=== PATIENT | female | born 1965 | race Caucasian/White ===

== ENCOUNTER 2018-05-12 15:13 | Observation (INO) | payer OTHER ==
[~2018-05-12] VITALS: Ht 160 cm; Wt 80.3 kg
[2018-05-12 16:24] LABS: BASOPHIL (%) 0.5 % (0-1); EOSINOPHIL (%) 1.3 % (0-5); EOSINOPHIL COUNT 0.1 K/uL (0-0.3); HEMATOCRIT 36.6 % (36.0-46.0); HEMOGLOBIN 12.4 G/DL (11.9-15.5); IMMATURE GRANULOCYTE (%) 0.2 % (0.0-0.7); LYMPHOCYTE (%) 21.4 % (15-42); LYMPHOCYTE COUNT 1.8 K/uL (1.0-2.8); MCH 30.3 PG (29.0-34.0); MCHC 33.9 G/DL (30.0-36.0); MCV 89.5 FL (83-99); MONOCYTE (%) 6.8 % (3-12); MONOCYTE COUNT 0.6 K/uL (0-0.8); NEUTROPHIL (%) 69.8 % (45-76); NEUTROPHIL COUNT 5.7 K/uL (1.8-6.4); PLATELET COUNT 244 K/uL (156-360); RBC DIS.WIDTH-CV 12.4 % (11.8-14.6); RBC DIS.WIDTH-SD 40.6 % (39-53); RED BLOOD COUNT 4.09 M/uL (3.80-5.20); WHITE BLOOD COUNT 8.2 K/uL (4.1-10.2)
[2018-05-12 16:33] LABS: INTER. NORMALIZED RATIO 1.1
[2018-05-12 16:35] LABS: PTT 31.1 SEC (25-37)
[2018-05-12 16:37] LABS: AMYLASE 59 IU/L (1-118); CHLORIDE 101 mEq/L (99-109); POTASSIUM 3.6 mEq/L (3.7-5.4); SODIUM 138 mEq/L (136-147)
[2018-05-12 16:39] LABS: GLUCOSE 133 mg/dL (70-99)
[2018-05-12 16:42] LABS: SERUM ETHYL ALCOHOL < 10 mg/dL
[2018-05-12 16:43] LABS: CREATININE 0.9 mg/dL (0.6-1.3); GFR ESTIMATE (CALCULATED) > 59 mL/min/; UREA NITROGEN (BUN) 15 mg/dL (9-23)
[2018-05-12 16:46] LABS: LIPASE 79 U/L (1.0-51.0)
[2018-05-12 16:47] LABS: TROP-I INTERPRETATION NEGATIVE; TROPONIN-I < 0.01 ng/mL (0.0-0.30)
[2018-05-12 16:51] LABS: QUANTITATIVE HCG < 4.0 MIU/ML
[2018-05-12] MEDS ORDERED: MICROZIDE12.5 M1 PO (17:12)
[2018-05-12] MEDS ORDERED: CLONAZEPAM1 MG PO (17:13)
[2018-05-12] MEDS ORDERED: PROCHLORPERAZIN10 MG PO (17:14)
[2018-05-12] MEDS ORDERED: LISINOPRIL10 MG PO (17:15)
[2018-05-12] MEDS ORDERED: SERTRALINE HCL50 MG PO (17:16)
[2018-05-12] MEDS ORDERED: RABEPRAZOLE SOD20 MG PO (17:18)
[2018-05-12] MEDS ORDERED: ALMOTRIPTAN M12.5 MG PO (17:23)
[2018-05-12 19:59] LABS: HDL CHOLESTEROL 55 MG/DL (Desirable>=50); LDL CHOLESTEROL 87 mg/dL (Desirable<100); NON-HDL CHOLESTEROL 109 mg/dL (Desirable<160); TOTAL CHOLESTEROL 164 mg/dL (Desirable<200); TRIGLYCERIDES 108 MG/DL (Normal: <150)
[2018-05-12 20:32] LABS: APPEARANCE CLEAR ((CLEAR)); BILIRUBIN NEGATIVE; BLOOD NEGATIVE; COLOR STRAW ((YELLOW)); GLUCOSE (STRIP) NEGATIVE; KETONES NEGATIVE; LEUKOCYTES NEGATIVE; NITRITE NEGATIVE; PROTEIN (STRIP) NEGATIVE; SPECIFIC GRAVITY 1.056 (1.000-1.030); UCUL ADDED? NO; UROBILINOGEN 0.2 MG/DL (0.2-1.0)
[2018-05-12 20:51] VITALS: BP 138/79
[2018-05-12 20:55] LABS: AMPHETAMINE NEGATIVE (500 ng/mL); BARBITURATES NEGATIVE (200 ng/mL); BENZODIAZEPINES NEGATIVE (150 ng/mL); BUPRENORPHINE NEGATIVE (10 ng/mL); COCAINE NEGATIVE (150 ng/mL); METHADONE NEGATIVE (200 ng/mL); METHAMPHETAMINE NEGATIVE (500 ng/mL); OPIATES (MORPHINE) NEGATIVE (100 ng/mL); OXYCODONE NEGATIVE (100 ng/mL); PHENCYCLIDINE NEGATIVE (25 ng/mL); PROPOXYPHENE NEGATIVE (300 ng/mL); THC CANNABINOIDS NEGATIVE (50 ng/mL); TRICYCLIC ANTIDEPRESSANTS NEGATIVE (300 ng/mL)
[2018-05-13 03:51] VITALS: BP 108/51
[2018-05-13 07:30] VITALS: BP 113/63
[2018-05-13 12:25] VITALS: BP 118/59
[2018-05-13 12:33] LABS: HEMOGLOBIN A1c (GLYCOHEMOGLOB) 5.6 % (Below 5.7)
[2018-05-13 12:50] LABS: CHLORIDE 103 MEQ/L (99-109); CREATININE 0.8 MG/DL (0.6-1.3); GFR ESTIMATE (CALCULATED) > 59 mL/min/; POTASSIUM 3.8 MEQ/L (3.7-5.4); SODIUM 142 MEQ/L (136-147); UREA NITROGEN (BUN) 12 mg/dL (9-23)
[2018-05-13 12:51] LABS: GLUCOSE 99 mg/dL (70-99)
[2018-05-13] MEDS ORDERED: ASPIR-LOW81 MG PO (13:53)
== END 2018-05-13 16:05 | disposition home or self-care (01) ==
LOC: EME 15:13 → 4SOUTH 18:38 → EDOF 18:38 → ENRESERV 18:41 → 4SOUTH 20:43
PROVIDERS: Emergency Medicine; Internal Medicine
PROC: B246ZZZ Ultrasonography of Right and Left Heart (ICD-10-PCS; principal; 2018-05-13)
DX: G45.9 Transient cerebral ischemic attack, unspecified (principal); G43.909 Migraine, unspecified, not intractable, without status migrainosus; I10 Essential (primary) hypertension; I27.20 Pulmonary hypertension, unspecified; R94.31 Abnormal electrocardiogram [ECG] [EKG]; I07.1 Rheumatic tricuspid insufficiency; R01.1 Cardiac murmur, unspecified; F32.9 Major depressive disorder, single episode, unspecified; F41.9 Anxiety disorder, unspecified; Z87.442 Personal history of urinary calculi; K21.9 Gastro-esophageal reflux disease without esophagitis; R06.02 Shortness of breath; Z90.710 Acquired absence of both cervix and uterus; Z82.49 Family history of ischemic heart disease and other diseases of the circulatory system; Z80.3 Family history of malignant neoplasm of breast; Z80.0 Family history of malignant neoplasm of digestive organs; Z88.2 Allergy status to sulfonamides
CPT/HCPCS: 70496; 70551; 80048; 80061; 81003; 82150; 83036; 83690; 84484; 84702; 85025; 85027; 85610; 85730; 86850; 86900; 86901; 93005; 93306; 93880; 99281; 99285; G0378; G0480